=== PATIENT | male | born 1980 | race African-American/Black ===

== ENCOUNTER 2017-10-07 18:39 | Inpatient (IN) | payer OTHER ==
[2017-10-07 09:33] LABS: ADD MAN DIFF? NO
[2017-10-07 09:36] LABS: HEMATOCRIT 45.8 % (42.0-52.0); HEMOGLOBIN 15.3 g/dl (14.0-18.0); MEAN CORPUSCULAR HEMOGLOBIN 27.3 pg (29.0-33.0); MEAN CORPUSCULAR HGB CONC 33.4 g/dl (32.0-37.0); MEAN CORPUSCULAR VOLUME 81.8 fl (82.0-101.0); MEAN PLATELET VOLUME 11.6 fl (7.4-10.4); PLATELET COUNT 220 10^3/UL (140-415); RED CELL DISTRIBUTION WIDTH 12.9 % (11.5-14.5)
[2017-10-07 09:36] LABS: WHITE BLOOD COUNT 6.5 10^3/ul (4.8-10.8)
[2017-10-07 09:57] LABS: INR 0.95; PROTIME 12.8 Sec (11.9-14.9)
[2017-10-07 09:58] LABS: PARTIAL THROMBOPLASTIN TIME 28.4 Sec (25.0-35.0)
[2017-10-07 10:03] LABS: ANION GAP 17 (8-16); BLOOD UREA NITROGEN 17 mg/dl (7-20); CALCIUM 10.2 mg/dl (8.4-10.2); CARBON DIOXIDE 28 mmol/L (21-31); CHLORIDE 103 mmol/L (97-110); GLUCOSE 91 mg/dl (70-220); POTASSIUM 3.9 mmol/L (3.5-5.1); SODIUM 144 mmol/L (135-144)
[2017-10-07] MEDS: METHYLPREDNISOLONE ACET 80 MG/ML 1 ML INJ (13:30)
[2017-10-07] MEDS: HYDROmorphONE 0.5 MG/0.5 ML SYG IV (13:32)
[2017-10-07] MEDS: LIDOCAINE 0.5% (SDV) 50 ML INJ INJ ×2 (15:08)
[2017-10-07] MEDS: BUPIVACAINE 0.5%/EPI (SDV) 30 ML INJ INJ ×2 (15:08)
[2017-10-07] MEDS: THROMBIN 5000 UNIT VIAL TOP ×3 (15:09→16:18)
[2017-10-07] MEDS: POLYMYXIN/BACITRACIN 1L IRRIG IRR ×2 (15:09)
[2017-10-07] MEDS: HEMOSTATIC MATRIX SYG INJ ×2 (15:09)
[2017-10-07] MEDS: HEMOSTATIC MATRIX SYG ZFS (16:13)
[2017-10-07] MEDS: LABETALOL HCL 20MG INJ IV ×2 (17:17→17:20)
[2017-10-07] MEDS: D5W-0.45 NACL + KCL 20 MEQ 1,000 ML IV (17:20)
[2017-10-07] MEDS: CEFAZOLIN 1 GM/50 ML (PMX) 50 ML IVPB (17:32)
[2017-10-07] MEDS: FENTAnyl 50 MCG/ML VIAL IV (17:42)
[2017-10-07] MEDS: HYDROmorphONE 1 MG/5 ML IV SYRINGE IV ×2 (17:53→18:05)
[~2017-10-07 18:39] MED LIST: BUPIVACAINE 0.5%/EPI (SDV) 30 ML INJ; CEFAZOLIN 1 GM INJ; CEFAZOLIN 1 GM/50 ML (PMX) 50 ML IVPB; CYCLOBENZAPRINE 10 MG TAB PO; D5W-0.45 NACL + KCL 20 MEQ 1,000 ML IV; DIPHENHYDRAMINE 50 MG INJ IV; ETOMIDATE 20 MG INJ; FENTAnyl 50 MCG/ML VIAL; GELATIN SIZE 100 SPONGE; HYDROCODONE/APAP (5/325) TAB PO; HYDROmorphONE 0.5 MG/0.5 ML SYG IV; HYDROmorphONE 1 MG/5 ML IV SYRINGE IV; LABETALOL HCL 20MG INJ; LIDOCAINE 0.5% (MDV) 50 ML INJ; LIDOCAINE 2% (SDV) 5 ML INJ; METOCLOPRAMIDE 10 MG INJ IV; METOPROLOL 5 MG INJ; MIDAZOLAM 1 MG/ML 2 ML INJ; NALOXONE (0.4 MG/ML) INJ IV; ONDANSETRON 4 MG INJ; ONDANSETRON 4 MG INJ IV; PROPOFOL 20 ML; ROCURONIUM 50 MG INJ; THROMBIN 5000 UNIT VIAL; hydrALAzine 20 MG INJ IV
[2017-10-07] MEDS: IBUPROFEN 800 MG TAB PO (21:05)
[2017-10-07] MEDS: BACLOFEN 10 MG TAB PO (23:27)
[2017-10-07] MEDS: KETOROLAC 30 MG INJ IM (23:28)
[2017-10-08] MEDS: D5W-0.45 NACL + KCL 20 MEQ 1,000 ML IV (03:30)
[2017-10-08] MEDS: KETOROLAC 30 MG INJ IM (05:31)
[2017-10-08] MEDS: BACLOFEN 10 MG TAB PO (08:32)
[2017-10-08] MEDS: IBUPROFEN 800 MG TAB PO (08:32)
== END 2017-10-08 12:10 | disposition home or self-care (01) | DRG 520 ==
LOC: MS1 18:39
PROC: 0SB20ZZ Excision of Lumbar Vertebral Disc, Open Approach (ICD-10-PCS; principal; 2017-10-07 11:00)
PROC: 4A11X4G Monitoring of Peripheral Nervous Electrical Activity, Intraoperative, External Approach (ICD-10-PCS; 2017-10-07 11:00)
DX: M51.16 Intervertebral disc disorders with radiculopathy, lumbar region (principal); M21.372 Foot drop, left foot; E66.9 Obesity, unspecified; I10 Essential (primary) hypertension; Z68.31 Body mass index [BMI] 31.0-31.9, adult
CPT/HCPCS: 72020; 80048; 85027; 85610; 85730; 88304